=== PATIENT | male | born 1970 | race African-American/Black ===

== ENCOUNTER 2016-10-15 11:04 | Emergency (ER) | payer MEDICAID ==
[~2016-10-15] VITALS: Ht 172.7 cm; Wt 90.0 kg
[2016-10-15] MEDS ORDERED: KETOROLAC 60MG/2ML VIAL IM ONE (12:30)
[2016-10-15] MEDS ORDERED: IBUPROFEN 800MG TABLET PO ONE (13:00)
[2016-10-15 13:10] VITALS: BP 140/86
== END 2016-10-15 14:48 | disposition home or self-care (01) ==
LOC: ER 11:58
DX: S06.0X0A Concussion without loss of consciousness, initial encounter (principal); S16.1XXA Strain of muscle, fascia and tendon at neck level, initial encounter; S66.911A Strain of unspecified muscle, fascia and tendon at wrist and hand level, right hand, initial encounter; S66.912A Strain of unspecified muscle, fascia and tendon at wrist and hand level, left hand, initial encounter; F17.200 Nicotine dependence, unspecified, uncomplicated; V29.40XA Motorcycle driver injured in collision with unspecified motor vehicles in traffic accident, initial encounter; Y93.55 Activity, bike riding; Y92.89 Other specified places as the place of occurrence of the external cause; Y99.8 Other external cause status
CPT/HCPCS: 99282; J1885

== ENCOUNTER 2016-11-10 01:18 | Inpatient (IN) | payer MEDICAID ==
[~2016-11-10] VITALS: Ht 170.2 cm; Wt 86.2 kg
[2016-11-10] MEDS ORDERED: ACETAMINOPHEN 500MG TABLET PO ONE (04:45)
[2016-11-10 05:05] LABS: BASOPHILS % 1.3 % (0.0-2.0); EOSINOPHILS % 1.5 % (0.0-5.0); HEMATOCRIT. 36.9 % (42.0-52.0); HEMOGLOBIN. 12.6 g/dL (14.0-18.0); LYMPHOCYTES % 26.9 % (20.0-50.0); MEAN CORPUSCULAR HEMOGLOBIN 29.7 pg (28.0-32.0); MEAN CORPUSCULAR VOLUME 87.1 fL (80.0-94.0); MEAN PLATELET VOLUME 10.4 fl (7.4-10.4); MONOCYTES % 6.8 % (2.0-8.0); NEUTROPHILS % 63.5 % (40.0-76.0); PLATELET 129 x1000/uL (130-400); RED BLOOD CELL COUNT 4.23 mill/uL (4.7-6.1); RED CELL DISTRIBUTION WIDTH 13.1 % (11.6-14.6)
[2016-11-10 05:18] LABS: CARBON DIOXIDE 27 mEq/L (21-32); CHLORIDE 104 mEq/L (98-107)
[2016-11-10] MEDS ORDERED: ASPIRIN 325MG EC TABLET PO ONE (05:45)
[2016-11-10] MEDS ORDERED: SODIUM CHLORIDE 0.9% 1,000 ML IV SCH (05:47)
[2016-11-10 08:22] LABS: CLARITY URINE CLEAR (CLEAR); COLOR URINE YELLOW (YELLOW); GLUCOSE URINE NEGATIVE (NEGATIVE); KETONES URINE NEGATIVE (NEGATIVE); LEUKOCYTE ESTERASE URINE NEGATIVE (NEGATIVE); NITRITE URINE NEGATIVE (NEGATIVE); OCCULT BLOOD URINE NEGATIVE (NEGATIVE); PROTEIN URINE NEGATIVE (NEGATIVE); SPECIFIC GRAVITY URINE 1.029 (1.005-1.030)
[2016-11-10 11:12] VITALS: BP 111/75
[2016-11-10] MEDS ORDERED: ACETAMINOPHEN 650MG/20.3ML UDC GT PRN (11:45)
[2016-11-10] MEDS ORDERED: CLONIDINE 0.1MG TABLET PO PRN (11:45)
[2016-11-10] MEDS ORDERED: ONDANSETRON HCL 4MG/2ML VIAL IV PRN (11:45)
[2016-11-10] MEDS ORDERED: HYDROCODONE/ACETAMINOPHEN 5/325MG TABLET PO PRN (11:45)
[2016-11-10] MEDS ORDERED: ACETAMINOPHEN 325MG TABLET PO PRN (11:54)
[2016-11-10 12:00] VITALS: BP 116/77
[2016-11-10] MEDS: ENOXAPARIN 40MG/0.4ML SYR SUBCUT SCH (12:00)
[2016-11-10] MEDS: RISPERIDONE 0.5MG TABLET PO SCH (13:05)
[2016-11-10] MEDS: FERROUS SULFATE 325MG TABLET PO SCH (13:05)
[2016-11-10] MEDS: MULTIVITAMINS,THER W-MINERALS TABLET PO SCH (13:06)
[2016-11-10 14:18] LABS: *AMPHETAMINES SCREEN URINE NEGATIVE (NEGATIVE); *BARBITURATES SCREEN URINE NEGATIVE (NEGATIVE); *BENZODIAZEPINES SCREEN URINE NEGATIVE (NEGATIVE); *COCAINE SCREEN URINE NEGATIVE (NEGATIVE); CANNABINOID URINE SCREEN PRESUMTIVE POSITIVE (NEGATIVE); METHADONE URINE SCREEN NEGATIVE (NEGATIVE); OPIATES URINE SCREEN NEGATIVE (NEGATIVE); PHENCYCLIDINE URINE SCREEN NEGATIVE (NEGATIVE)
[2016-11-10] MEDS ORDERED: POTASSIUM CHLORIDE 20MEQ TABLET SR PO SCH (14:30)
[2016-11-10] MEDS ORDERED: IBUPROFEN 800MG TABLET PO PRN (14:30)
[2016-11-10 16:00] VITALS: BP 115/73
[2016-11-10 16:20] LABS: CREATINE KINASE 285 IU/L (39-308); TROPONIN I < 0.02 ng/mL (0.00-0.04)
[2016-11-10 20:00] VITALS: BP 120/72
[2016-11-11] VITALS: BP 116/76
[2016-11-11 01:07] LABS: CREATINE KINASE 223 IU/L (39-308); TROPONIN I < 0.02 ng/mL (0.00-0.04)
[2016-11-11 04:00] VITALS: BP 115/71
[2016-11-11 06:54] LABS: BASOPHILS % 0.5 % (0.0-2.0); EOSINOPHILS % 1.8 % (0.0-5.0); HEMOGLOBIN. 12.7 g/dL (14.0-18.0); LYMPHOCYTES % 36.3 % (20.0-50.0); MEAN CORPUSCULAR HEMOGLOBIN 29.4 pg (28.0-32.0); MEAN CORPUSCULAR VOLUME 88.1 fL (80.0-94.0); MEAN PLATELET VOLUME 10.6 fl (7.4-10.4); MONOCYTES % 10.1 % (2.0-8.0); NEUTROPHILS % 51.3 % (40.0-76.0); PLATELET 118 x1000/uL (130-400); RED BLOOD CELL COUNT 4.32 mill/uL (4.7-6.1); RED CELL DISTRIBUTION WIDTH 12.8 % (11.6-14.6)
[2016-11-11 07:58] LABS: CARBON DIOXIDE 26 mEq/L (21-32); CHLORIDE 105 mEq/L (98-107); LDL CHOLESTEROL 75 mg/dL (5-100)
[2016-11-11 08:00] VITALS: BP 122/79
[2016-11-11 08:08] LABS: HDL CHOLESTEROL 71 mg/dL (40-59)
[2016-11-11] MEDS: MULTIVITAMINS,THER W-MINERALS TABLET PO SCH (08:50)
[2016-11-11] MEDS: FERROUS SULFATE 325MG TABLET PO SCH (08:50)
[2016-11-11] MEDS: RISPERIDONE 0.5MG TABLET PO SCH (08:50)
[2016-11-11] MEDS: ENOXAPARIN 40MG/0.4ML SYR SUBCUT SCH (08:50)
[2016-11-11] MEDS ORDERED: ASPIRIN 325MG EC TABLET PO SCH (09:00)
[2016-11-11] MEDS ORDERED: FOLIC ACID 1MG TABLET PO SCH (09:00)
[2016-11-11 12:18] VITALS: BP 127/81
[2016-11-11 15:45] VITALS: BP 125/76
[2016-11-11 16:00] VITALS: BP 136/82
== END 2016-11-11 16:33 | disposition home or self-care (01) | DRG 203 ==
LOC: ER 01:18 → 5WST 05:48 → EDBEDREQ 05:58 → ENRESERV 10:00
PROVIDERS: ADMIT Internal Medicine; ATTEND Internal Medicine
DX: R07.89 Other chest pain (principal); E44.1 Mild protein-calorie malnutrition; I10 Essential (primary) hypertension; E83.51 Hypocalcemia; E86.0 Dehydration; F20.9 Schizophrenia, unspecified; F10.10 Alcohol abuse, uncomplicated; F17.210 Nicotine dependence, cigarettes, uncomplicated; R00.1 Bradycardia, unspecified; Z71.6 Tobacco abuse counseling; Z68.29 Body mass index [BMI] 29.0-29.9, adult
CPT/HCPCS: 36415; 71010; 80053; 80061; 80305; 81003; 82550; 83690; 84443; 84484; 85025; 85651; 93005; 93306; 93970; 96360; 99285; 99406; J7030

== ENCOUNTER 2018-10-22 23:38 | Emergency (ER) | payer MEDICAID ==
[~2018-10-22] VITALS: Ht 172.7 cm; Wt 83.7 kg
[2018-10-23] MEDS ORDERED: SODIUM CHLORIDE 0.9% 1,000 ML IV ONE (00:51)
[2018-10-23] MEDS ORDERED: KETOROLAC 30MG/ML VIAL IV STA (00:51)
[2018-10-23] MEDS ORDERED: MAGNESIUM/ALUMINUM HYDROXIDE/SIMETHICONE 30ML UDC PO ONE (01:00)
[2018-10-23] MEDS ORDERED: VISCOUS LIDOCAINE 2% 15 ML UDC PO ONE (01:00)
[2018-10-23] MEDS ORDERED: ASPIRIN 81MG TABLET PO ONE (01:00)
[2018-10-23 04:07] VITALS: BP 136/85
== END 2018-10-23 04:16 | disposition left against medical advice (07) ==
LOC: ER 23:38
DX: R10.0 Acute abdomen (principal); R11.2 Nausea with vomiting, unspecified
CPT/HCPCS: 71045; 93005; 99284; J7030; Z7610

== ENCOUNTER 2023-10-04 22:20 | Emergency (ER) | payer MEDICAID, OTHER ==
[~2023-10-04] VITALS: Ht 175.3 cm; Wt 82.0 kg
[2023-10-04 22:27] VITALS: BP 136/98; PULSE 86; RESP 18; TEMP 98.2; O2SAT 100
== END 2023-10-04 22:54 | disposition left against medical advice (07) ==
LOC: ER 22:20
DX: R00.0 Tachycardia, unspecified (principal); Z53.21 Procedure and treatment not carried out due to patient leaving prior to being seen by health care provider
CPT/HCPCS: 71045; 93005

== ENCOUNTER 2023-12-01 08:28 | Emergency (ER) | payer OTHER ==
[~2023-12-01] VITALS: Ht 177.8 cm; Wt 83.0 kg
[2023-12-01 08:40] VITALS: O2SAT 99
[2023-12-01 08:45] VITALS: TEMP 98.7; O2SAT 99
[2023-12-01] MEDS ORDERED: IBUP-2029 MT (09:58)
[2023-12-01] MEDS ORDERED: DICL100G58 TP (09:58)
[2023-12-01] MEDS ORDERED: ACET-2708 MT (09:59)
[2023-12-01 10:36] VITALS: BP 188/115; PULSE 73; RESP 16
[2023-12-01] MEDS: IBUPROFEN 600MG TABLET PO ONE (10:36)
== END 2023-12-01 10:45 | disposition home or self-care (01) ==
LOC: ER 08:34
DX: S43.401A Unspecified sprain of right shoulder joint, initial encounter (principal); F20.9 Schizophrenia, unspecified; I10 Essential (primary) hypertension; F31.9 Bipolar disorder, unspecified; X58.XXXA Exposure to other specified factors, initial encounter; Y93.89 Activity, other specified; Y92.89 Other specified places as the place of occurrence of the external cause; Y99.8 Other external cause status
CPT/HCPCS: 73030; 99283